=== PATIENT | female | born 1990 | race Caucasian/White ===

== ENCOUNTER 2018-11-02 21:48 | Emergency (ER) | payer OTHER ==
[2018-11-02] MEDS ORDERED: DIPHENHYDRAMINE HCL 50 MG/ML VIAL IV ONE (23:27)
[2018-11-02] MEDS ORDERED: NORMAL SALINE 1000 ML 1,000 ML IV ONE (23:28)
--- NOTE | 2018-11-02 23:30 | ER Document Report ---
ED General - General Chief Complaint: Tremor Stated Complaint: CONVULSIONS Time Seen by Provider: 11/02/18 23:00 - HPI Notes: Patient is a 28-year-old female who presents emergency department for evaluation of convulsion like activity and twitching. This is been ongoing intermittently since she was 14. Only happened intermittently, lasted only several minutes. Said it lasted 2 hours. The patient admits she was drinking margaritas. She denies use of any other illicit drugs. Patient significant other states she drinks at least 3 times a week, if not more. The patient denies any suicidal or homicidal ideation. She states she had referral to neurology as a child. She states she had an EEG and nothing was ever found. - Related Data Allergies/Adverse Reactions: amoxicillin Allergy (Verified 11/03/18 00:09) Home Medications: Effexor Past Medical History - General Information source: Patient - Social History Smoking Status: Current Every Day Smoker - Vaping Frequency of alcohol use: Heavy Drug Abuse: None Family History: Reviewed & Not Pertinent Psychiatric Medical History: Reports: Hx Depression Review of Systems - Review of Systems Constitutional: No symptoms reported EENT: No symptoms reported Cardiovascular: No symptoms reported Respiratory: No symptoms reported Gastrointestinal: No symptoms reported Genitourinary: No symptoms reported Musculoskeletal: No symptoms reported Skin: No symptoms reported Neurological/Psychological: See HPI Physical Exam - Vital signs Vitals: Temp Pulse Resp BP Pulse Ox 97.7 F 160 H 20 99/80 L 100 11/02/18 22:09 11/02/18 22:09 11/02/18 22:09 11/02/18 22:09 11/02/18 22:09 - Notes Notes: Is a 28-year-old female who appears her stated age in no acute distress. She is laying on her back in a hallway bed. She intermittently shows rhythmic type movements, nodding her head back and forth, shaking her shoulders back and forth. Her hips and legs seem to make the similar motions. She is awake and alert during these episodes. She is able to talk and follow directions throughout. Vital signs reviewed, please refer to chart. Head is normocephalic, atraumatic. Pupils equal round, reactive to light. Neck is supple without meningismus. Heart is regular rate and rhythm. Lungs are clear to auscultation bilaterally. Abdomen is soft, nontender, normoactive bowel sounds throughout. Extremities without cyanosis, clubbing. Posterior calves are nontender. Peripheral pulses are equal. Skin is warm and dry. Patient is awake, alert, oriented x3. Cranial nerves II - XII are grossly intact without focal neurological deficits. Strength is plus 5 out of 5 bilateral upper and lower extremities. Sensation is intact. Reflexes symmetrical. Intact [id number], rapid alternating movements, [id number]. Course - Re-evaluation Re-evalutation: 11/03/18 01:41 Patient presents emergency department for evaluation of convulsions/tremor. She has had an extensive work-up as a child and these are unremarkable. These do not seem consistent with a full seizure at this time. She is able to remain awake and alert, follow directions, and with concentration appears to be able to stop them from happening. I went back to reevaluate the patient and she was resting comfortably. I spoke at length with her . The patient has stopped seeing her therapist. She is unhappy with the care of her psychiatrist. I do have strong suspicion for significant alcohol abuse at this time. I strongly urged the patient's to continue to convince her to seek out further psychological and psychiatric care. She is encouraged to cut down on her alcohol consumption. Otherwise, she should follow-up with primary care and psych, return to the ED with worsening or new concerning symptoms of any sort. - Vital Signs Vital signs: Temp Pulse Resp BP Pulse Ox 97.7 F 160 H 20 99/80 L 100 11/02/18 22:09 11/02/18 22:09 11/02/18 22:09 11/02/18 22:09 11/02/18 22:09 - Laboratory Result Diagrams: 11/02/18 00:04 11/02/18 00:04 Laboratory results interpreted by me: 11/02/18 00:04 Chloride 109 H Carbon Dioxide 21 L BUN 5 L Total Bilirubin 0.1 L Discharge - Discharge Clinical Impression: Tremor, Alcohol abuse with intoxication Condition: Stable Disposition: HOME, SELF-CARE Instructions: Acute Alcohol Intoxication ([facility]) Additional Instructions: No clear cause was found for your symptoms today. We strongly encourage you to abstain from heavy alcohol use. I also encourage you to follow-up closely with psychiatry/psychology. Return to the emergency department with worsening or new concerning symptoms of any sort.
[2018-11-03 00:02] LABS: APPEARANCE,URINE CLEAR; BILIRUBIN,URINE NEGATIVE (NEGATIVE); COLOR,URINE COLORLESS; GLUCOSE, URINE NEGATIVE (NEGATIVE); KETONES,URINE NEGATIVE (NEGATIVE); LEUKOCYTE ESTERASE,URINE NEGATIVE (NEGATIVE); NITRITE,URINE NEGATIVE (NEGATIVE); PROTEIN,URINE NEGATIVE (NEGATIVE); URINE SPECIFIC GRAVITY 1.002; UROBILINOGEN,URINE NEGATIVE mg/dL (<2.0)
[2018-11-03 00:15] LABS: URINE AMPHETAMINES SCREEN NEGATIVE; URINE BARBITURATES SCREEN NEGATIVE; URINE BENZODIAZEPINES SCREEN NEGATIVE; URINE COCAINE SCREEN NEGATIVE; URINE MARIJUANA (THC) SCREEN NEGATIVE; URINE METHADONE SCREEN NEGATIVE; URINE PHENCYCLIDINE SCREEN NEGATIVE
[2018-11-03 00:22] LABS: ADD MANUAL MICROSCOPIC YES
[2018-11-03 00:23] LABS: ABSOLUTE EOSINOPHILS # (AUTO) 0.1 10^3/uL (0.0-0.6); ABSOLUTE LYMPHOCYTES (AUTO) 1.6 10^3/uL (0.5-4.7); ABSOLUTE MONOCYTES (AUTO) 0.4 10^3/uL (0.1-1.4); BASOPHILS % (AUTO) 0.2 % (0-2); EOSINOPHILS % (AUTO) 0.7 % (0-6); HEMATOCRIT 40.2 % (36.0-47.0); HEMOGLOBIN 13.4 g/dL (12.0-15.5); LYMPHOCYTES % (AUTO) 19.8 % (13-45); MEAN CORPUSCULAR HEMOGLOBIN 29.7 pg (27.0-33.4); MEAN CORPUSCULAR HGB CONC 33.3 g/dL (32.0-36.0); MEAN CORPUSCULAR VOLUME 89 fl (80-97); MONOCYTES % (AUTO) 5.5 % (3-13); PLATELET COUNT 297 10^3/uL (150-450); RED BLOOD COUNT 4.52 10^6/uL (3.72-5.28); RED CELL DISTRIBUTION WIDTH 13.4 % (11.5-14.0); SEGMENTED NEUTROPHILS % (AUTO) 73.8 % (42-78); TOTAL CELLS COUNTED % (AUTO) 100 %; WHITE BLOOD COUNT 8.1 10^3/uL (4.0-10.5)
[2018-11-03 00:39] LABS: ALBUMIN 4.5 g/dL (3.5-5.0); ALCOHOL 263 mg/dL (NONE DETECTED); ALKALINE PHOSPHATASE 63 U/L (38-126); ANION GAP 15 (5-19); ASPARTATE AMINO TRANSFERASE 16 U/L (14-36); BILIRUBIN,DIRECT 0.1 mg/dL (0.0-0.4); BILIRUBIN,TOTAL 0.1 mg/dL (0.2-1.3); BLOOD UREA NITROGEN 5 mg/dL (7-20); CALCIUM 9.1 mg/dL (8.4-10.2); CARBON DIOXIDE 21 mmol/L (22-30); CHLORIDE 109 mmol/L (98-107); GLUCOSE 105 mg/dL (75-110); POTASSIUM 4.1 mmol/L (3.6-5.0); TOTAL PROTEIN 7.4 g/dL (6.3-8.2)
[2018-11-03 03:01] VITALS: BP 95/58
== END 2018-11-03 03:01 | disposition home or self-care (01) ==
LOC: ER 21:48 → EDBD 21:48 → ER 11-03 03:01
DX: R25.1 Tremor, unspecified (principal); F10.129 Alcohol abuse with intoxication, unspecified; F17.200 Nicotine dependence, unspecified, uncomplicated; Z88.0 Allergy status to penicillin
CPT/HCPCS: 36415; 80307 ×2; 84703; 85025; 80053; 81001; J7030; 96360; 99284

== ENCOUNTER 2019-12-04 01:52 | Emergency (ER) | payer OTHER ==
--- NOTE | 2019-12-04 02:27 | ER Document Report ---
ED Psych Disorder / Suicide - General Chief Complaint: Psych Problem Stated Complaint: POSSIBLE OVERDOSE Time Seen by Provider: 12/04/19 02:10 Mode of Arrival: Medic Information source: Patient, Emergency Med Personnel Notes: 29-year-old female arrives by medics 3 with chief complaint of overdosing on 10 tablets of Lamictal 150 mg that she got filled on 11/10. Patient denies any suicidal ideation but took these pills on a spur of the moment thought. She called her boyfriend Lynseyalf who advised he came over to her house and upon arriving she came down the stairs by herself. She did vomit outside but there was no pills to be seen in her vomitus according to Isabella. Patient denies any chest pain denies any HI or SI patient is on Macrobid because of a laceration to her right hand around the thenar web. This appears to be self-induced. Her vital signs are within normal limits except for some tachycardia around 108. She appears to be sleepy. She reports that her pills were taken around 2 hours prior to arrival and poison control was attempted to be notified but they were on hold. Patient did report she was drinking some beer prior to the ingestion of the 10 tablets of Lamictal. She denies any shortness of breath chest pain back pain extremity pain headache nuchal rigidity sore throat vision problems coronavirus or flu virus exposure. Prior history of February 2018 overdose of bupropion. TRAVEL OUTSIDE OF THE [place] IN LAST 30 DAYS: No - HPI Patient complains to provider of: Overdose Onset: This evening Onset was: Sudden Quality of pain: No pain Severity: None Pain Level: Denies Suicide Attempt Method: Overdose, Stabbing/Cutting. denies: Drowning, Hanging, Motor Vehicle Overdose of: No: Acetominophen, Alcohol, Anticholinergic - The mental side effects - Related Data Allergies/Adverse Reactions: amoxicillin Allergy (Verified 12/04/18 14:55) Past Medical History - General Information source: Patient, Friend - Social History Smoking Status: Current Every Day Smoker Cigarette use (# per day): Yes Chew tobacco use (# tins/day): No Smoking Education Provided: Yes Frequency of alcohol use: Occasional Drug Abuse: Prescription drugs Lives with: Family Family History: Reviewed & Not Pertinent Patient has suicidal ideation: No Patient has homicidal ideation: No - Past Medical History Cardiac Medical History: Denies: Hx Coronary Artery Disease, Hx DVT, Hx Hypercholesterolemia, Hx Hypertension, Hx Pulmonary Embolism Pulmonary Medical History: Denies: Hx Asthma, Hx Bronchitis, Hx Pneumonia Neurological Medical History: Denies: Hx Seizures Endocrine Medical History: Denies: Hx Diabetes Mellitus Type 1, Hx Hyperthyr oidism, Hx Hypothyroidism Renal/ Medical History: Denies: Hx Peritoneal Dialysis GI Medical History: Denies: Hx Cirrhosis, Hx Crohn's Disease, Hx Hepatitis, Hx Ulcerative Colitis Musculoskeletal Medical History: Denies Hx Arthritis, Denies Hx Fibromyalgia, Reports Hx Musculoskeletal Deformity - Scoliosis Skin Medical History: Denies Hx Eczema, Denies Hx Psoriasis Psychiatric Medical History: Reports: Hx Bipolar Disorder, Hx Depression Infectious Medical History: Denies: Hx Hepatitis Past Surgical History: Reports: Hx Oral Surgery - [place] teeth - Immunizations Immunizations up to date: Yes Hx Diphtheria, Pertussis, Tetanus Vaccination: Yes Review of Systems - Review of Systems Constitutional: See HPI, Malaise, Weakness EENT: No symptoms reported Cardiovascular: No symptoms reported Respiratory: No symptoms reported Gastrointestinal: No symptoms reported Genitourinary: No symptoms reported Female Genitourinary: No symptoms reported Musculoskeletal: No symptoms reported Skin: No symptoms reported Hematologic/Lymphatic: No symptoms reported Neurological/Psychological: See HPI, Depression, Weakness Physical Exam - Vital signs Vitals: Temp 97.9 F 12/04/19 01:53 Interpretation: Normal - General General appearance: Appears well, Alert - HEENT Head: Normocephalic, Atraumatic Eyes: Normal Pupils: PERRL - Respiratory Respiratory status: No respiratory distress Chest status: Nontender Breath sounds: Normal Chest palpation: Normal - Cardiovascular Rhythm: Regular Heart sounds: Normal auscultation Murmur: No - Abdominal Inspection: Normal Distension: No distension Bowel sounds: Normal Tenderness: Nontender Organomegaly: No organomegaly - Rectal Hemorrhoids: Other - deferred - Genitourinary Bimanuel exam: Other - deferred - Back Back: Normal, Nontender - Extremities General upper extremity: Normal inspection, Nontender, Normal color, Normal ROM, Normal temperature General lower extremity: Normal inspection, Nontender, Normal color, Normal ROM, Normal temperature, Normal weight bearing. No: Neha's sign - Neurological Neuro grossly intact: Yes Cognition: Normal Orientation: AAOx4 Ada Coma Scale Eye Opening: Spontaneous Roosevelt Coma Scale Verbal: Oriented Roosevelt Coma Scale Motor: Obeys Commands Roosevelt Coma Scale Total: 15 Speech: Normal Motor strength normal: LUE, RUE, LLE, RLE Sensory: Normal - Psychological Associated symptoms: Normal affect, Normal mood - Skin Skin Temperature: Warm Skin Moisture: Dry Skin Color: Normal Course - Vital Signs Vital signs: Temp Pulse Resp BP Pulse Ox 98.2 F 16 125/79 97 12/04/19 16:00 12/04/19 16:00 12/04/19 16:00 12/04/19 16:00 - Laboratory Result Diagrams: 12/04/19 02:00 12/04/19 02:00 Laboratory results interpreted by me: 12/04/19 12/04/19 02:00 05:00 Carbon Dioxide 21 L Glucose 115 H Urine Nitrite POSITIVE H Ur Leukocyte Esterase TRACE H Salicylates < 1.0 L Acetaminophen < 10 L - EKG Interpretation by In EKG shows normal: Sinus rhythm Rate: Normal Rhythm: NSR Discharge - Discharge Clinical Impression: Intentional overdose of drug in tablet form, Alcohol use Depression Qualifiers: Depression Type: unspecified Qualified Code(s): F32.9 - Major depressive disorder, single episode, unspecified Condition: Stable Disposition: OTHER
[2019-12-04 02:42] LABS: ABSOLUTE LYMPHOCYTES (AUTO) 1.8 10^3/uL (0.5-4.7); ABSOLUTE MONOCYTES (AUTO) 0.3 10^3/uL (0.1-1.4); ABSOLUTE NEUT (AUTO) 2.4 10^3/uL (1.7-8.2); ACETAMINOPHEN < 10 ug/mL (10-30); ALBUMIN 4.8 g/dL (3.5-5.0); ALCOHOL 233 mg/dL (NONE DETECTED); ALKALINE PHOSPHATASE 62 U/L (38-126); ANION GAP 16 (5-19); ASPARTATE AMINO TRANSFERASE 14 U/L (14-36); BASOPHILS % (AUTO) 0.3 % (0-2); BILIRUBIN,DIRECT 0.3 mg/dL (0.0-0.4); BILIRUBIN,TOTAL 0.5 mg/dL (0.2-1.3); BLOOD UREA NITROGEN 7 mg/dL (7-20); CALCIUM 8.9 mg/dL (8.4-10.2); CARBON DIOXIDE 21 mmol/L (22-30); CHLORIDE 107 mmol/L (98-107); EOSINOPHILS % (AUTO) 0.6 % (0-6); GLUCOSE 115 mg/dL (75-110); HEMATOCRIT 38.8 % (36.0-47.0); HEMOGLOBIN 13.4 g/dL (12.0-15.5); LYMPHOCYTES % (AUTO) 39.2 % (13-45); MEAN CORPUSCULAR HEMOGLOBIN 31.5 pg (27.0-33.4); MEAN CORPUSCULAR HGB CONC 34.6 g/dL (32.0-36.0); MEAN CORPUSCULAR VOLUME 91 fl (80-97); MONOCYTES % (AUTO) 6.6 % (3-13); PLATELET COUNT 209 10^3/uL (150-450); POTASSIUM 4.1 mmol/L (3.6-5.0); RED BLOOD COUNT 4.26 10^6/uL (3.72-5.28); RED CELL DISTRIBUTION WIDTH 12.7 % (11.5-14.0); SALICYLATE < 1.0 mg/dL (2.0-20.0); SEGMENTED NEUTROPHILS % (AUTO) 53.3 % (42-78); TOTAL CELLS COUNTED % (AUTO) 100 %; TOTAL PROTEIN 7.9 g/dL (6.3-8.2); WHITE BLOOD COUNT 4.6 10^3/uL (4.0-10.5)
[2019-12-04 05:53] LABS: APPEARANCE,URINE CLEAR; BILIRUBIN,URINE NEGATIVE (NEGATIVE); COLOR,URINE YELLOW; GLUCOSE, URINE NEGATIVE (NEGATIVE); KETONES,URINE NEGATIVE (NEGATIVE); LEUKOCYTE ESTERASE,URINE TRACE (NEGATIVE); NITRITE,URINE POSITIVE (NEGATIVE); PROTEIN,URINE NEGATIVE (NEGATIVE); URINE SPECIFIC GRAVITY 1.006; UROBILINOGEN,URINE NEGATIVE mg/dL (<2.0)
[2019-12-04 07:12] LABS: URINE AMPHETAMINES SCREEN NEGATIVE; URINE BARBITURATES SCREEN NEGATIVE; URINE BENZODIAZEPINES SCREEN NEGATIVE; URINE COCAINE SCREEN NEGATIVE; URINE MARIJUANA (THC) SCREEN NEGATIVE; URINE METHADONE SCREEN NEGATIVE; URINE PHENCYCLIDINE SCREEN NEGATIVE
[2019-12-04] MEDS: NORMAL SALINE 1000 ML 1,000 ML IV PRN ×2 (10:12→10:13)
--- NOTE | 2019-12-04 19:47 | EKG REPORT ---
SEVERITY:- NORMAL ECG - SINUS RHYTHM : Confirmed by: Tk Davis 04-Dec-2019 19:46:43
[2019-12-05 04:41] VITALS: BP 139/81
[2019-12-05] MEDS ORDERED: PHENAZOPYRIDINE HCL 200 MG TABLET PO ONE (04:46)
[2019-12-05] MEDS ORDERED: CEPHALEXIN 500 MG CAPSULE PO SCH (05:00)
[2019-12-05] MEDS ORDERED: ONDANSETRON 4 MG TAB.RAPDIS PO ONE (05:33)
== END 2019-12-05 08:52 | disposition other institution (70) ==
LOC: ER 01:52
DX: T42.6X2A Poisoning by other antiepileptic and sedative-hypnotic drugs, intentional self-harm, initial encounter (principal); F32.9 Major depressive disorder, single episode, unspecified; Z72.89 Other problems related to lifestyle; R11.10 Vomiting, unspecified; R53.81 Other malaise; R53.1 Weakness; Z88.0 Allergy status to penicillin; F17.210 Nicotine dependence, cigarettes, uncomplicated
CPT/HCPCS: 93005; 99285; 96360; 36415; 87086; 80307 ×4; 85025; 80053; 81001; 93010; S0119; J3490; J7030